=== PATIENT | female | born 1960 | race Hispanic/Latino ===

== ENCOUNTER 2022-01-31 12:17 | Outpatient (CLI) | payer OTHER | END 2022-01-31 12:18 | disposition home or self-care (01) | LOC: TBSIIMAG 12:17 | PROVIDERS: ATTEND Family Medicine | DX: S20.221D Contusion of right back wall of thorax, subsequent encounter (principal); M48.061 Spinal stenosis, lumbar region without neurogenic claudication; Z98.890 Other specified postprocedural states | CPT/HCPCS: 72148 ==